=== PATIENT | male | born 1975 | race African-American/Black ===

== ENCOUNTER 2017-06-28 16:55 | Emergency (ER) | payer OTHER ==
[~2017-06-28] VITALS: Ht 193 cm; Wt 120.0 kg
[~2017-06-28 16:55] MED LIST: ALBU18HF INHALATION; LISI10TA2 PO; TRAM50TA2 PO
[2017-06-28] MEDS ORDERED: METOCLOPRAMIDE 10 MG INJ IV STA (17:06)
[2017-06-28] MEDS ORDERED: DIPHENHYDRAMINE 50 MG INJ IV STA (17:06)
[2017-06-28] MEDS ORDERED: SOD CHLORIDE 0.9% 1,000 ML IV STA (17:06)
[2017-06-28 17:12] VITALS: Ht 193 cm; Wt 120.0 kg
--- NOTE | 2017-06-28 18:34 | ERD ---
ER Documentation Chief Complaint Date/Time DATE: 06/28/17 TIME: 18:29 Chief Complaint BIB RA FOR EVAL OF STARR. PT A&OX4. HPI This is a 42-year-old male who presents to the emergency room with multiple complaints. His main complaint is a headache. He describes 2 days of gradual onset diffuse and bandlike headache that is 8 out of 10. Patient describes prior history of headaches. He states that he was diagnosed with a brain tumor but did not follow-up. The patient also describes gum infection. He states that he has not seen a dentist. He is unsure for how long this has been occurring. ROS All systems reviewed and are negative except as per history of present illness. Medications Home Meds Active Scripts Acetamin/Butalbital/Caffeine* (Fioricet*) [id number] Tab, 1 TAB PO Q6H Y for PAIN, #30 TAB Prov:BIN BARR MD 06/28/17 Reported Medications Albuterol Sulfate* (Ventolin HFA*) 18 Gm Hfa.aer.ad, 2 PUFF INHALATION Q6H Y for WHEEZING AND SOB, #1 INHALER 08/31/16 Discontinued Reported Medications Lisinopril* (Lisinopril*) 10 Mg Tablet, 10 MG PO DAILY, #30 TAB 08/31/16 Discontinued Scripts Tramadol HCl (Tramadol HCl) 50 Mg Tablet, 50 MG PO Q6 Y for PAIN, #4 TAB Prov:JOSE G GALLAGHER MD 08/31/16 Allergies Allergies: Coded Allergies: No Known Drug Allergies (Verified Allergy, Unknown, 06/28/17) PMhx/Soc History of Surgery: No Anesthesia Reaction: No Hx Neurological Disorder: Yes (brain tumor) Hx Respiratory Disorders: Yes (ASTHMA) Hx Cardiac Disorders: No Hx Psychiatric Problems: Yes (schizophrenia, bipolar) Hx Miscellaneous Medical Probl: Yes (kidney stones, ulcers, thyroid) Hx Alcohol Use: No Hx Substance Use: Yes (meth last used couple days ago) Hx Tobacco Use: Yes (cigars) FmHx Family History: No diabetes Physical Exam Vitals Vital Signs Date Time Temp Pulse Resp B/P Pulse Ox O2 Delivery O2 Flow Rate FiO2 06/28/17 19:05 97.4 98 20 129/82 100 Room Air 06/28/17 17:12 97.4 75 19 134/79 99 Physical Exam General: Well developed, well nourished, no acute distress, wearing sunglasses Head: Normocephalic, atraumatic. Eyes: Pupils equally reactive, EOM intact ENT: Moist mucous membranes poor dentition and dental caries diffusely, mild gingival inflammation, no abscess. Neck: Supple, no lymphadenopathy Respiratory: Lungs clear bilaterally, no distress Cardiovascular: RRR, no murmurs, rubs, or gallops Abdominal: Soft, non-tender, non-distended, no peritoneal signs : Deferred MSK: No edema, no unilateral swelling, 5/5 strength Neurologic: Alert and oriented, moving all extremities, normal speech, no focal weakness, no cerebellar signs Skin: No rash Psych: Normal mood Results 24 hrs Current Medications Medications (Trade) Dose Ordered Sig/Gumaro Route PRN Reason Start Time Stop Time Status Last Admin Dose Admin Sodium Chloride (NS) 1,000 ml @ 1,000 mls/hr Q1H STAT IV 06/28/17 17:06 06/28/17 18:05 DC 06/28/17 17:24 Metoclopramide HCl (Reglan) 10 mg ONCE STAT IV 06/28/17 17:06 06/28/17 17:07 DC 06/28/17 17:22 Diphenhydramine HCl (Benadryl) 25 mg ONCE STAT IV 06/28/17 17:06 06/28/17 17:07 DC 06/28/17 17:23 Procedures/MDM EKG, MONITORS, & DIAGNOSTIC IMAGING: CT brain: Pending at the time of signout MEDICAL DECISION MAKING: The patient presents with a headache. The patient's headache is unlikely related to serious etiology. The patient does not exhibit any clinical signs or symptoms, and has no risk factors to suggest headache etiology such as subarachnoid hemorrhage, acute vertebral or carotid dissection, intracranial mass, epidural, subdural hematoma, dural venous sinus thrombosis, giant cell arteritis, or pseudotumor cerebri. The patient states that he was diagnosed with a brain tumor but looking through the patient's electronic medical record he was diagnosed with a nonspecific arachnoid cyst that was unchanged and he has not had follow-up. Reviewing the patient's electronic medical record, care is an 80 it appears the patient has multiple visits to local emergency rooms. Concern for possible malingering or drug-seeking behavior. Patient has gingival inflammation that will benefit from outpatient dental follow-up. No indication for current antibiotics. I discussed dental hygiene. ER COURSE: CT brain pending at the time of signout. The patient was given IV fluids Reglan and Benadryl with improved symptomatology. Outpatient follow-up with primary care physician would be appropriate. CT is pending. If negative the patient can be safely discharged home. He was endorsed to the oncoming provider. I kept the patient and/or family informed of laboratory and diagnostic imaging results throughout the emergency room course. DISPOSITION PLAN: We discussed follow up with the patient's primary care doctor within 24 to 48 hours as needed. We also discussed return to the emergency room for worsening symptoms or worsening condition. Outpatient referral: [None required] Departure Diagnosis: Primary Impression: Headache Headache type: unspecified Headache chronicity pattern: chronic headache Intractability: not intractable Qualified Code: R51 - Chronic nonintractable headache, unspecified headache type Condition: Stable BIN BARR MD Jun 28, 2017 18:34
[2017-06-28] MEDS ORDERED: FIORICET PO (19:11)
--- NOTE | 2017-06-28 20:42 | RADRPT ---
PROCEDURE: CT Brain without contrast. CLINICAL INDICATION: Pain, headache TECHNIQUE: Routine CT scan of the brain was performed on a high resolution multi detector scanner without intravenous contrast. One or more of the following dose reduction techniques were used: Auto mated exposure control; Adjustment of the mA and/or kV according to patient size; Use of iterative r econstruction technique. CTDI = 43 mGy. DLP = 720 mGy-cm. COMPARISON: CT brain 12/29/2012 FINDINGS: Hemorrhage: No evidence of intracranial hemorrhage. Acute ischemic changes: No evidence of acute ischemic changes. Mass effect: Small right middle cranial fossa arachnoid cyst measuring 3.0 x 1.5 cm is unchanged. Parenchymal volume: Within normal limits for age. Ventricular system: Concordant with parenchymal volume. Chronic changes: Parenchymal attenuation is within normal limits. Extracranial soft tissues: Unremarkable. Calvarium: No fractures. Paranasal sinuses: Visualized paranasal sinuses are clear. Mastoid air cells: Visualized mastoid air cells are clear. IMPRESSION: No acute intracranial abnormalities. Normal appearance of the brain parenchyma. Unchanged from the previous examination. RPTAT: AADD .Brady Marie MD, MD Date Time Electronically viewed and signed by .Brady Marie MD, on 06/28/2017 20:42 .B/
[2017-06-28 21:09] VITALS: BP 134/82; PULSE 92; RESP 20; TEMP 97.4
== END 2017-06-28 21:10 | disposition home or self-care (01) ==
LOC: E/R 16:55
DX: R51 Headache (principal); F17.210 Nicotine dependence, cigarettes, uncomplicated; E03.9 Hypothyroidism, unspecified; J45.909 Unspecified asthma, uncomplicated
CPT/HCPCS: 70450; 96374; 96375; J1200; J2765; J7030; Z7502